=== PATIENT | female | born 1975 | race Native Hawaiian/Other Pacific Islander ===

== ENCOUNTER 2020-03-27 10:31 | Outpatient (CLI) | payer BC | END 2020-03-27 23:07 | disposition home or self-care (01) | LOC: MRI 10:31 | DX: M47.812 Spondylosis without myelopathy or radiculopathy, cervical region (principal) ==

== ENCOUNTER 2021-04-23 13:19 | Emergency (ER) | payer BC ==
[~2021-04-23] VITALS: Ht 157.5 cm; Wt 99.8 kg
[2021-04-23 13:19] VITALS: TEMP 98.6
[2021-04-23 14:50] VITALS: BP 118/68
== END 2021-04-23 14:50 | disposition home or self-care (01) ==
LOC: ED 13:24
DX: S30.0XXA Contusion of lower back and pelvis, initial encounter (principal); W01.0XXA Fall on same level from slipping, tripping and stumbling without subsequent striking against object, initial encounter; Y92.89 Other specified places as the place of occurrence of the external cause
CPT/HCPCS: 99283